=== PATIENT | male | born 1960 | race Caucasian/White ===

== ENCOUNTER 2020-07-25 13:59 | Outpatient (CLI) | payer BC ==
--- NOTE | 2020-07-25 15:58 | XRAY Report ---
PROCEDURE: Cervical Spine 2 View INDICATIONS: NECK PAIN TECHNIQUE: 2 view(s) of the cervical spine were acquired. COMPARISON: None. FINDINGS: Bones: No fractures or dislocations to the C7 level. The lateral masses of C1 appear intact on the odontoid view. No suspicious bony lesions. Mild grade 1 retrolisthesis of C2 on C3, C3 on C4, and C 4-C5. Disc space narrowing and endplate osteophyte formation, worst at C4-C5, C5-C6, and C6-C7 are pr esent, indicating degenerative disc disease. Mild facet hypertrophy throughout the mid and lower cerv ical spine. Soft tissues: No prevertebral soft tissue swelling. IMPRESSION: 1. Multilevel degenerative disc and facet disease. 2. No acute fracture. No osseous lesion. If symptoms and/or clinical suspicion for pathology continue , further assessment with repeat plain films, or advanced imaging (e.g., CT, MRI, or bone scan) is re commended for further assessment. Reviewed by: Lupe Blanc MD on 07/25/2020 3:57 PM PST Approved by: Lupe Blanc MD on 07/25/2020 3:57 PM PST Station ID: [id number]
== END 2020-07-25 14:00 | disposition home or self-care (01) ==
LOC: DI 13:59
PROVIDERS: ATTEND Internal Medicine
DX: M47.812 Spondylosis without myelopathy or radiculopathy, cervical region (principal); M43.12 Spondylolisthesis, cervical region
CPT/HCPCS: 72040

== ENCOUNTER 2021-02-18 08:00 | Outpatient (CLI) | payer OTHER ==
--- NOTE | 2021-02-18 19:04 | XRAY Report ---
PROCEDURE: Cervical Spine 2 View INDICATIONS: PAIN IN CERVICAL SPINE TECHNIQUE: 3 view(s) of the cervical spine were acquired. COMPARISON: 07/25/2020. FINDINGS: Bones: No fractures or dislocations to the C7 level. The lateral masses of C1 appear intact on the odontoid view. There is mild retrolisthesis at C3-C4 which appears similar to the prior study. Multil evel degenerative disc disease present including moderate degeneration at C4-C5, C5-C6, and C6-C7 wit h endplate sclerosis and osteophytosis. There is also mild multilevel facet arthropathy throughout th e cervical spine. Soft tissues: No prevertebral soft tissue swelling. IMPRESSION: 1. Mild retrolisthesis at C3-C4 appears similar to the prior study. 2. Multilevel degenerative changes in the cervical spine as described. Reviewed by: Chon Ga MD on 02/18/2021 7:03 PM PDT Approved by: Chon Ga MD on 02/18/2021 7:03 PM PDT Station ID: [id number]
--- NOTE | 2021-02-18 19:10 | XRAY Report ---
PROCEDURE: Thoracic Spine 3 View INDICATIONS: PAIN IN THORACIC SPINE TECHNIQUE: 3 views of the thoracic spine were acquired. COMPARISON: Concurrent study of the cervical spine. FINDINGS: Bones: No fractures or subluxation. There is a mild leftward curvature of the lower lumbar spine ce ntered at T9-T10. There is mild multilevel space narrowing within the visualized thoracic spine with mild endplate sclerosis and osteophytosis. No suspicious bony lesions. 12 pairs of ribs are noted, a nd appear intact where visualized. Soft tissues: No paravertebral stripe thickening. IMPRESSION: 1. Mild multilevel degenerative disc disease throughout the visualized thoracic spine. 2. Mild leftward curvature of the lower thoracic spine. Reviewed by: Chon Ga MD on 02/18/2021 7:09 PM PDT Approved by: Chon Ga MD on 02/18/2021 7:09 PM PDT Station ID: [id number]
== END 2021-02-18 23:59 | disposition home or self-care (01) ==
LOC: DI.S 08:00
PROVIDERS: ATTEND Physician Assistant Medical
DX: M50.321 Other cervical disc degeneration at C4-C5 level (principal); M47.812 Spondylosis without myelopathy or radiculopathy, cervical region; M43.12 Spondylolisthesis, cervical region; M51.34 Other intervertebral disc degeneration, thoracic region; M43.8X4 Other specified deforming dorsopathies, thoracic region